=== PATIENT | male | born 1945 | race Caucasian/White ===

== ENCOUNTER 2021-07-10 21:27 | Inpatient (IN) ==
[2021-07-10] MEDS ORDERED: ONDANSETRON 4 MG/2 ML VIAL IV ONE (21:54)
[2021-07-10] MEDS ORDERED: MORPHINE 2 MG/1 ML SYRINGE IV ONE (21:54)
[2021-07-10 22:02] LABS: Basophils % 0.4 % (0.0-0.8); Eosinophils # 0.2 10*3/uL (0.0-0.87); Eosinophils % 2.4 % (0.00-10.9); Hematocrit 35.7 VOL% (42.0-52.0); Hemoglobin 12.3 GM/DL (14.0-18.0); Immature Granulocytes % 0.7 %; Immature Granulocytes Absolute 0.05 #; Lymphocytes # 1.4 10*3/uL (1.4-4.0); Mean Corpuscular HGB Conc 34.5 GM/DL (32-36); Mean Corpuscular Volume 92.2 FL (87-102); Mean Platelet Volume 10.6 FL (9.6-12.0); Monocytes % 7.7 % (1.7-12.7); Neutrophils % 70.8 % (38.7-73.9); Platelet Count 188 T/CUMM (130-400); Red Blood Count 3.87 MC/CUMM (3.8-5.5); Red Cell Distribution Width 12.4 % (9.3-17.3); White Blood Count 7.6 T/CUMM (4-12)
[2021-07-10 22:14] LABS: PT Patient Result 11.1 SECS (10.5-12.0)
[2021-07-10 22:21] LABS: Albumin 4.1 G/DL (3.4-5.0); Bilirubin,Total 0.6 MG/DL (0.20-1.00); Calcium 9.5 MG/DL (8.5-10.1); Osmolality,Calculated 279.5 MOS/KG (273-304); Potassium 4.3 MMOL/L (3.5-5.1); Total Protein 7.1 G/DL (6.4-8.2)
[2021-07-10] MEDS ORDERED: ALBUTEROL/IPRATROPIUM 3 ML NEB RESP TX PRN (23:45)
[2021-07-10] MEDS ORDERED: ACETAMINOPHEN 325 MG TABLET PO PRN (23:45)
[2021-07-10] MEDS ORDERED: DEXTROSE 50% 25 GM/50 ML VIAL IV PRN (23:45)
[2021-07-10] MEDS ORDERED: ONDANSETRON 4 MG/2 ML VIAL IV PRN (23:45)
[2021-07-10] MEDS ORDERED: guaiFENesin/DM ER 600-30 MG TABLET PO PRN (23:45)
[2021-07-10] MEDS ORDERED: diphenhydrAMINE CAP 25 MG CAPSULE PO PRN (23:45)
[2021-07-10] MEDS ORDERED: GLUCAGON 1 MG VIAL IM PRN (23:45)
[2021-07-10] MEDS ORDERED: NICOTINE 21 MG/24 HR PATCH TRANSDERM PRN (23:45)
[2021-07-10] MEDS ORDERED: hydrALAZINE 20 MG/1 ML VIAL IV PRN (23:45)
[2021-07-11] MEDS: LACTATED RINGERS 1,000 ML IV SCH ×4 (01:49→16:27)
[2021-07-11] MEDS: ZALEPLON 5 MG CAPSULE PO PRN ×2 (02:46→20:49)
[2021-07-11 03:12] LABS: Bilirubin,Urine Negative (Negative); Blood, Urine Negative (Negative); Glucose,Urine (UA) 50 mg/dL (Negative); Ketones,Urine 5 mg/dL (Negative); Mucus,Urine Occasional /LPF (Occasional); Nitrite,Urine Negative (Negative); Protein,Urine Negative; RBC,Urine 3 /HPF (0-4); Urine Appearance CLEAR (Clear); Urine Color Yellow (Yellow); Urine Specific Gravity 1.018 (1.001-1.035); Urine Urobilinogen < 2.0 EU/DL (0.2-1.0)
[2021-07-11 04:54] LABS: Basophils % 0.5 % (0.0-0.8); Eosinophils # 0.1 10*3/uL (0.0-0.87); Eosinophils % 0.8 % (0.00-10.9); Hemoglobin 11.6 GM/DL (14.0-18.0); Immature Granulocytes % 0.5 %; Immature Granulocytes Absolute 0.04 #; Lymphocytes # 1.1 10*3/uL (1.4-4.0); Lymphocytes % 13.1 % (21.2-54.2); Mean Corpuscular HGB Conc 34.1 GM/DL (32-36); Mean Corpuscular Volume 92.9 FL (87-102); Mean Platelet Volume 10.6 FL (9.6-12.0); Monocytes % 8.3 % (1.7-12.7); Neutrophils % 76.8 % (38.7-73.9); Platelet Count 163 T/CUMM (130-400); Red Blood Count 3.66 MC/CUMM (3.8-5.5); Red Cell Distribution Width 12.2 % (9.3-17.3); White Blood Count 8.3 T/CUMM (4-12)
[2021-07-11 05:18] LABS: Calcium 9.1 MG/DL (8.5-10.1); Osmolality,Calculated 280.7 MOS/KG (273-304); Potassium 4.3 MMOL/L (3.5-5.1)
[2021-07-11] MEDS: MORPHINE 2 MG/1 ML SYRINGE IV PRN ×4 (05:27→20:50)
[2021-07-11] MEDS: ROSUVASTATIN 20 MG TABLET PO SCH (08:59)
[2021-07-11] MEDS: PANTOPRAZOLE 40 MG TABLET PO SCH (08:59)
[2021-07-11] MEDS: MEMANTINE 10 MG TABLET PO SCH ×2 (08:59→20:49)
[2021-07-11] MEDS: DONEPEZIL 10 MG TABLET PO SCH (08:59)
[2021-07-11] MEDS ORDERED: INFLUENZA VIRUS VACCINE 0.5 ML SYRINGE IM ONE (09:00)
[2021-07-11] MEDS: ENOXAPARIN 40 MG/0.4 ML SYRINGE SUBCUT SCH (20:49)
[2021-07-11] MEDS: INSULIN REGULAR 100 UNIT/ML SUBCUT SCH (21:26)
[2021-07-12] MEDS: LACTATED RINGERS 1,000 ML IV SCH ×2 (06:41→15:21)
[2021-07-12] MEDS: MEMANTINE 10 MG TABLET PO SCH ×2 (08:31→20:53)
[2021-07-12] MEDS: ROSUVASTATIN 20 MG TABLET PO SCH (08:31)
[2021-07-12] MEDS: PANTOPRAZOLE 40 MG TABLET PO SCH (08:31)
[2021-07-12] MEDS: DONEPEZIL 10 MG TABLET PO SCH (08:31)
[2021-07-12] MEDS: INSULIN REGULAR 100 UNIT/ML SUBCUT SCH ×4 (08:47→20:53)
[2021-07-12] MEDS: DOCUSATE SODIUM 100 MG CAPSULE PO PRN (11:58)
[2021-07-12] MEDS ORDERED: DEXTROSE 50% 25 GM/50 ML VIAL IV PRN (13:42)
[2021-07-12] MEDS ORDERED: GLUCAGON 1 MG VIAL IM PRN (13:42)
[2021-07-12] MEDS: MORPHINE 2 MG/1 ML SYRINGE IV PRN (18:12)
[2021-07-12] MEDS: ENOXAPARIN 40 MG/0.4 ML SYRINGE SUBCUT SCH (20:53)
[2021-07-12] MEDS: ZALEPLON 5 MG CAPSULE PO PRN (20:56)
[2021-07-13] MEDS: LACTATED RINGERS 1,000 ML IV SCH ×2 (00:07→03:17)
[2021-07-13] MEDS: MORPHINE 2 MG/1 ML SYRINGE IV PRN (02:05)
[2021-07-13 05:10] LABS: Red Blood Count 3.63 MC/CUMM (3.8-5.5); White Blood Count 8.1 T/CUMM (4-12)
[2021-07-13 05:11] LABS: Basophils % 0.5 % (0.0-0.8); Eosinophils # 0.5 10*3/uL (0.0-0.87); Eosinophils % 5.9 % (0.00-10.9); Hematocrit 33.9 VOL% (42.0-52.0); Hemoglobin 11.4 GM/DL (14.0-18.0); Immature Granulocytes % 0.4 %; Immature Granulocytes Absolute 0.03 #; Lymphocytes # 1.1 10*3/uL (1.4-4.0); Lymphocytes % 13.7 % (21.2-54.2); Mean Corpuscular HGB Conc 33.6 GM/DL (32-36); Mean Corpuscular Volume 93.4 FL (87-102); Mean Platelet Volume 10.6 FL (9.6-12.0); Monocytes % 10.9 % (1.7-12.7); Neutrophils % 68.6 % (38.7-73.9); Platelet Count 154 T/CUMM (130-400)
[2021-07-13 05:27] LABS: Osmolality,Calculated 276.8 MOS/KG (273-304)
[2021-07-13] MEDS: INSULIN REGULAR 100 UNIT/ML SUBCUT SCH ×4 (08:56→22:29)
[2021-07-13] MEDS: PANTOPRAZOLE 40 MG TABLET PO SCH (09:28)
[2021-07-13] MEDS: DONEPEZIL 10 MG TABLET PO SCH (09:28)
[2021-07-13] MEDS: MEMANTINE 10 MG TABLET PO SCH ×2 (09:28→22:29)
[2021-07-13] MEDS: ROSUVASTATIN 20 MG TABLET PO SCH (09:34)
[2021-07-13] MEDS ORDERED: TUBERCULIN SKIN TEST 0.1 ML SYRINGE INTRADERM ONE (10:47)
[2021-07-13] MEDS: ENOXAPARIN 40 MG/0.4 ML SYRINGE SUBCUT SCH (22:39)
[2021-07-14 06:33] LABS: Calcium 9.4 MG/DL (8.5-10.1); Osmolality,Calculated 276.8 MOS/KG (273-304); Potassium 4.1 MMOL/L (3.5-5.1)
[2021-07-14] MEDS: DONEPEZIL 10 MG TABLET PO SCH (09:36)
[2021-07-14] MEDS: PANTOPRAZOLE 40 MG TABLET PO SCH (09:37)
[2021-07-14] MEDS: INSULIN REGULAR 100 UNIT/ML SUBCUT SCH ×4 (09:37→21:10)
[2021-07-14] MEDS: ROSUVASTATIN 20 MG TABLET PO SCH (09:37)
[2021-07-14] MEDS: MEMANTINE 10 MG TABLET PO SCH ×2 (09:37→21:10)
[2021-07-14] MEDS: LACTATED RINGERS 1,000 ML IV SCH ×2 (11:53→15:12)
[2021-07-14] MEDS: POLYETHYLENE GLYCOL POWDER 17 GM PACK PO SCH (21:10)
[2021-07-14] MEDS: ENOXAPARIN 40 MG/0.4 ML SYRINGE SUBCUT SCH (22:25)
[2021-07-15] MEDS: LACTATED RINGERS 1,000 ML IV SCH ×2 (04:42→19:00)
[2021-07-15 05:14] LABS: Basophils % 0.5 % (0.0-0.8); Eosinophils # 0.3 10*3/uL (0.0-0.87); Eosinophils % 4.6 % (0.00-10.9); Hematocrit 34.4 VOL% (42.0-52.0); Hemoglobin 11.7 GM/DL (14.0-18.0); Lymphocytes # 1.2 10*3/uL (1.4-4.0); Lymphocytes % 16.7 % (21.2-54.2); Mean Corpuscular Volume 91.2 FL (87-102); Mean Platelet Volume 10.6 FL (9.6-12.0); Monocytes % 11.8 % (1.7-12.7); Neutrophils % 65.7 % (38.7-73.9); Platelet Count 191 T/CUMM (130-400); Red Blood Count 3.77 MC/CUMM (3.8-5.5); Red Cell Distribution Width 11.9 % (9.3-17.3); White Blood Count 7.4 T/CUMM (4-12)
[2021-07-15 05:21] LABS: Calcium 8.8 MG/DL (8.5-10.1); Osmolality,Calculated 277.1 MOS/KG (273-304); Potassium 4.4 MMOL/L (3.5-5.1)
[2021-07-15] MEDS: MORPHINE 2 MG/1 ML SYRINGE IV PRN (06:12)
[2021-07-15] MEDS: DONEPEZIL 10 MG TABLET PO SCH (08:55)
[2021-07-15] MEDS: ROSUVASTATIN 20 MG TABLET PO SCH (08:55)
[2021-07-15] MEDS: PANTOPRAZOLE 40 MG TABLET PO SCH (08:55)
[2021-07-15] MEDS: INSULIN REGULAR 100 UNIT/ML SUBCUT SCH ×4 (08:55→20:32)
[2021-07-15] MEDS: MEMANTINE 10 MG TABLET PO SCH ×2 (08:55→20:32)
[2021-07-15] MEDS: POLYETHYLENE GLYCOL POWDER 17 GM PACK PO SCH (08:56)
[2021-07-15] MEDS ORDERED: propofoL 200 MG/20 ML VIAL IV ONE (16:04)
[2021-07-15] MEDS ORDERED: fentaNYL 100 MCG/2 ML VIAL ONE (16:04)
[2021-07-15] MEDS ORDERED: LIDOCAINE 2% 5 ML VIAL ONE (16:04)
[2021-07-15] MEDS ORDERED: ROCURONIUM 50 MG/5 ML VIAL IV ONE (16:04)
[2021-07-15] MEDS ORDERED: PHENYLEPHRINE 10 MG/1 ML VIAL IV ONE (16:51)
[2021-07-15] MEDS ORDERED: SEVOFLURANE 1 UNIT/15 MINUTE INH ONE ×4 (16:52→18:13)
[2021-07-15] MEDS ORDERED: SODIUM CHLORIDE 0.9% 250 ML IV ONE (16:52)
[2021-07-15] MEDS ORDERED: ceFAZolin 1,000 MG VIAL ONE (16:54)
[2021-07-15] MEDS ORDERED: HYDROmorphone 2 MG/1 ML VIAL ONE (17:32)
[2021-07-15] MEDS ORDERED: GLYCOPYRROLATE 0.4 MG/2 ML VIAL ONE (18:11)
[2021-07-15] MEDS ORDERED: NEOSTIGMINE 10 MG/10 ML VIAL ONE (18:11)
[2021-07-16] MEDS: LACTATED RINGERS 1,000 ML IV SCH ×3 (01:29→12:08)
[2021-07-16] MEDS: MORPHINE 2 MG/1 ML SYRINGE IV PRN (02:44)
[2021-07-16 07:57] LABS: Basophils % 0.2 % (0.0-0.8); Eosinophils % 0.2 % (0.00-10.9); Hematocrit 32.4 VOL% (42.0-52.0); Hemoglobin 10.9 GM/DL (14.0-18.0); Immature Granulocytes % 0.5 %; Immature Granulocytes Absolute 0.04 #; Lymphocytes # 0.9 10*3/uL (1.4-4.0); Lymphocytes % 10.2 % (21.2-54.2); Mean Corpuscular HGB Conc 33.6 GM/DL (32-36); Mean Platelet Volume 10.1 FL (9.6-12.0); Monocytes % 11.5 % (1.7-12.7); Neutrophils % 77.4 % (38.7-73.9); Platelet Count 201 T/CUMM (130-400); Red Blood Count 3.56 MC/CUMM (3.8-5.5); Red Cell Distribution Width 11.9 % (9.3-17.3); White Blood Count 8.8 T/CUMM (4-12)
[2021-07-16] MEDS: MEMANTINE 10 MG TABLET PO SCH ×2 (09:05→20:50)
[2021-07-16] MEDS: DOCUSATE SODIUM 100 MG CAPSULE PO PRN (09:05)
[2021-07-16] MEDS: INSULIN REGULAR 100 UNIT/ML SUBCUT SCH ×4 (09:05→20:51)
[2021-07-16] MEDS: DONEPEZIL 10 MG TABLET PO SCH (09:05)
[2021-07-16] MEDS: PANTOPRAZOLE 40 MG TABLET PO SCH (09:05)
[2021-07-16] MEDS: POLYETHYLENE GLYCOL POWDER 17 GM PACK PO SCH (09:05)
[2021-07-16] MEDS: ROSUVASTATIN 20 MG TABLET PO SCH (09:10)
[2021-07-16] MEDS: ZINC OXIDE 16% PASTE 57 GM TUBE TOP SCH ×2 (16:27→20:51)
[2021-07-16] MEDS ORDERED: GLUCAGON 1 MG VIAL IM PRN (17:44)
[2021-07-16] MEDS ORDERED: DEXTROSE 50% 25 GM/50 ML VIAL IV PRN (17:44)
[2021-07-16] MEDS: ENOXAPARIN 40 MG/0.4 ML SYRINGE SUBCUT SCH (20:50)
[2021-07-17] MEDS: LACTATED RINGERS 1,000 ML IV SCH (02:10)
[2021-07-17] MEDS ORDERED: MAGNESIUM HYDROXIDE SUSP 30 ML UDCUP PO PRN (06:12)
[2021-07-17] MEDS: PANTOPRAZOLE 40 MG TABLET PO SCH (08:42)
[2021-07-17] MEDS: INSULIN REGULAR 100 UNIT/ML SUBCUT SCH ×3 (08:42→17:15)
[2021-07-17] MEDS: MEMANTINE 10 MG TABLET PO SCH ×2 (08:42→20:30)
[2021-07-17] MEDS: DONEPEZIL 10 MG TABLET PO SCH (08:42)
[2021-07-17] MEDS: POLYETHYLENE GLYCOL POWDER 17 GM PACK PO SCH (08:42)
[2021-07-17] MEDS: ZINC OXIDE 16% PASTE 57 GM TUBE TOP SCH ×2 (08:42→20:30)
[2021-07-17] MEDS: ROSUVASTATIN 20 MG TABLET PO SCH (08:42)
[2021-07-17] MEDS ORDERED: CLOPIDOGREL 75 MG TABLET PO SCH (09:00)
[2021-07-17] MEDS ORDERED: METOPROLOL SUCCINATE XL 50 MG TABLET PO SCH (09:00)
[2021-07-17 11:09] LABS: Basophils % 0.4 % (0.0-0.8); Eosinophils # 0.1 10*3/uL (0.0-0.87); Eosinophils % 1.3 % (0.00-10.9); Hematocrit 31.4 VOL% (42.0-52.0); Hemoglobin 10.6 GM/DL (14.0-18.0); Immature Granulocytes % 0.6 %; Immature Granulocytes Absolute 0.06 #; Lymphocytes # 0.9 10*3/uL (1.4-4.0); Lymphocytes % 8.3 % (21.2-54.2); Mean Corpuscular HGB Conc 33.8 GM/DL (32-36); Mean Corpuscular Volume 92.1 FL (87-102); Mean Platelet Volume 10.8 FL (9.6-12.0); Monocytes % 7.8 % (1.7-12.7); Neutrophils % 81.6 % (38.7-73.9); Platelet Count 233 T/CUMM (130-400); Red Blood Count 3.41 MC/CUMM (3.8-5.5); Red Cell Distribution Width 11.9 % (9.3-17.3); White Blood Count 10.5 T/CUMM (4-12)
[2021-07-17 11:44] LABS: Osmolality,Calculated 275.7 MOS/KG (273-304); Potassium 4.5 MMOL/L (3.5-5.1)
[2021-07-17 12:38] LABS: Bilirubin,Urine Negative (Negative); Blood, Urine Moderate mg/dL (Negative); Glucose,Urine (UA) >=500 mg/dL (Negative); Ketones,Urine Negative (Negative); Mucus,Urine Occasional /LPF (Occasional); Nitrite,Urine Negative (Negative); Protein,Urine 30 MG/DL; RBC,Urine 2 /HPF (0-4); Squamous Epithelial Cell,Urine Occasional /HPF (0-10); Urine Appearance CLEAR (Clear); Urine Color Yellow (Yellow)
[2021-07-17] MEDS: ENOXAPARIN 40 MG/0.4 ML SYRINGE SUBCUT SCH (20:30)
[2021-07-17 20:45] VITALS: BP 141/55
== END 2021-07-17 20:55 | disposition swing bed (61) | DRG 522 ==
LOC: EDUNIT# → EDBD → N.ED 21:27 → N.EDINP 23:45 → SUATTDRO 23:45 → N.EDINP 07-11 01:04 → N.3E 07-11 01:12
PROVIDERS: ADMIT Emergency Medicine; ATTEND Internal Medicine